=== PATIENT | female | born 1935 | race Caucasian/White ===

== ENCOUNTER 2019-02-20 09:12 | Inpatient (IN) ==
[2019-02-20] MEDS ORDERED: NS 1,000 ML IV ONE (10:06)
[2019-02-20] MEDS ORDERED: NS 100 ML IV ONE (10:07)
[2019-02-20 10:27] LABS: EOS# 0.05 X1000 (0.0-0.7); HEMATOCRIT 20.9 % (37.0-47.0); HEMOGLOBIN 7.1 g/dL (12.0-16.0); LYMPH# 0.15 X1000 (1.2-3.4); LYMPH% 21.1 % (20.5-51.1); MCH 33.5 PG (27-31); MCV 98.6 FL (81-99); MONO# 0.01 X1000 (0.11-0.59); MONO% 1.4 % (1.7-9.3); NEUT% 70.5 % (42.2-75.2); RBC 2.12 XMIL (4.2-5.4); RDW 21.5 % (11.5-14.5); WBC 0.71 X1000 (4.8-10.8)
[2019-02-20 10:29] LABS: PLT 9 X1000 (130-400)
[2019-02-20 10:37] LABS: AGAP 10; ALB/GLOB RATIO 1.5; ALBUMIN 3.1 g/dL (3.5-5.0); ALKALINE PHOSPHATASE 74 U/L (32-104); AMYLASE 60 U/L (20-200); BUN 14 mg/dL (8-22); CHLORIDE 96 mmol/L (98-107); COSMO 263; CREATININE 0.7 mg/dL (0.5-0.9); ESTIMATED GFR > 60; GLUCOSE 122 mg/dL (70-104); GOT 49 U/L (10-30); GPT 33 U/L (10-36); LIPASE 43 U/L (13-60); POTASSIUM 3.6 mmol/L (3.5-5.1); SODIUM 130 mmol/L (136-145); TCO2 24 mmol/L (25-35); TOTAL BILIRUBIN 2.11 mg/dL (0.20-1.00); TOTAL PROTEIN 5.2 g/dL (6.3-8.3)
[2019-02-20 10:51] LABS: EOS 12 % (1-10); LYMPHS 12 % (21-51); SEGS 72 % (42-75)
--- NOTE | 2019-02-20 10:58 | PROVIDER DOCUMENTATION ---
HPI-Fever - General Chief Complaint: Fever Stated Complaint: DEHYDRATED? ON CANCER TX Time Seen by Provider: 02/20/19 09:38 Source: patient, family Allergies/Adverse Reactions: Patient Allergies Allergy/AdvReac Type Severity Reaction Status Date / Time Sulfa (Sulfonamide Allergy RASH Verified 02/20/19 10:14 Antibiotics) Home Medications: Home Medication List Medication Instructions Recorded Confirmed Last Taken Type Acyclovir [Zovirax] 1 tab PO BID 02/20/19 02/20/19 Unknown History Dapsone 1 tab PO BID 02/20/19 02/20/19 Unknown History Dexamethasone 1 tab PO DAILY 02/20/19 02/20/19 Unknown History Hydrochlorothiazide 1 cap PO DAILY 02/20/19 02/20/19 Unknown History Levetiracetam 1 tab PO DAILY 02/20/19 02/20/19 Unknown History Levothyroxine [Synthroid] 1 tab PO DAILY 02/20/19 02/20/19 Unknown History Nitrofurantoin Monohyd/M-Cryst 1 cap PO BID 02/20/19 02/20/19 Unknown History [Nitrofurantoin [place]-Mcr 100 mg] Quinapril HCl 1 mg PO QHS 02/20/19 02/20/19 Unknown History - History of Present Illness-Fever Nature of Presenting Problem: Presents to the with complaints of low grade fever, possible UTI, SOB, cough and nausea. Her daughter states that she is cvurrently undergoing treatment for glioblastoma with chemo and radiation. Her daughter states that during the week she has been having a low grade temp to 100.8 and has been dosing tylenol. She states that earlier this week at one of her chemo treatments they diagnosed her with a UTI and gave her macrobid which she states she completed, however throughout the week she continued to get more weak, develop a non productive cough, become slightly SOB and have some nausea. They deny any diarrhea, or abdominal pain. They called their oncologist and spoke to the nurse pharmacy innovation assistant who told her to come in for IV fluids. Fever Severity/Quality: reports: greater than 100.5 F Onset/Duration: reports: 1 week ago Timing: reports: still present, getting worse Severity: reports: moderate Recent Illness?: reports: UTI Fever Therapy MANAGER LSW: Initiated Tylenol Cognitive Baseline: alert, oriented x3 - Glascow Coma Score Best Eye Response ([place]): (4) open spontaneously Best Verbal Response ([place]): (5) oriented Best Motor Response ([place]): (6) obeys commands Review of Systems - Adult - REVIEW OF SYSTEMS - ADULT Constitutional: reports: chills, fever, other (weakness) Eyes: reports: no symptoms reported Ears, Nose, Mouth & Throat: reports: no symptoms reported Cardiovascular: reports: no symptoms reported Respiratory: reports: see HPI, cough, shortness of breath Gastrointestinal: reports: nausea. denies: abdominal pain, diarrhea, vomiting Genitourinary: reports: frequent UTI's Musculoskeletal: reports: no symptoms reported Integumentary: reports: no symptoms reported Neurological: reports: no symptoms reported Psychiatric: reports: no symptoms reported Endocrine: reports: no symptoms reported Hematologic/Lymphatic: reports: no symptoms reported Allergic/Immunologic: reports: no symptoms reported All Other Systems: Reviewed and Negative Past History - Adult - PAST MEDICAL HISTORY-ADULT Review of Records: reports: Old Records Reviewed, Nursing Assessment Review, Medications Reviewed Physical Exam-General - PHYSICAL EXAM-ADULT Initial Vital Signs Reviewed: Yes - CONSTITUTIONAL General Appearance: alert, no apparent distress, other (weak) - EYES Eyes: PERRL/EOMI, pale conjunctivae - HEAD, EARS, NOSE, MOUTH & THROAT HENMT: normocephalic/atraumatic - NECK Neck: non-tender, full range of motion - RESPIRATORY Respiratory: chest non-tender, lungs clear, normal breath sounds - CARDIOVASCULAR Cardiovascular: normal peripheral pulses, regular rate, rhythm - GASTROINTESTINAL (ABDOMEN) Abdominal Exam: normal bowel sounds, soft, tenderness (mild diffuse tenderness) - LYMPHATIC Lymphatic: no adenopathy - MUSCULOSKELETAL Back Exam: normal inspection, no CVA tenderness Extremity: normal range of motion, non-tender - SKIN Integumentary: warm/dry, pallor - NEUROLOGIC Neurologic: grossly normal - PSYCHIATRIC Psych/Mental Status: normal mood/affect, oriented x 3 Progress - PLAN OF CARE/RESULTS Progress/Plan/Lab Results: Vital Signs - 8 hr 02/20/19 10:00 02/20/19 12:00 02/20/19 14:00 Pulse Rate 78 74 79 Respiratory Rate 22 28 H 29 H Blood Pressure 115/79 112/53 116/49 O2 Sat by Pulse Oximetry 87 L 91 L 90 L 02/20/19 16:00 Pulse Rate 88 Respiratory Rate 32 H Blood Pressure 109/49 O2 Sat by Pulse Oximetry 89 L Laboratory Results - last 24 hr 02/20/19 02/20/19 02/20/19 10:00 10:00 10:00 WBC 0.71 L RBC 2.12 L Hgb 7.1 L Hct 20.9 L MCV 98.6 MCH 33.5 H MCHC 34.0 RDW Std Deviation 21.5 H Plt Count 9 L* MPV Not Reportable Immature Gran % (Auto) 0.0 Neut % (Auto) 70.5 Lymph % (Auto) 21.1 [place] % (Auto) 1.4 L Eos % (Auto) 7.0 Baso % (Auto) 0.0 Immature Gran # (Auto) 0.00 Neut # (Auto) 0.50 L Lymph # (Auto) 0.15 L [place] # (Auto) 0.01 L Eos # (Auto) 0.05 Baso # (Auto) 0.00 Segmented Neutrophils 72 Lymphocytes 12 L Eosinophils 12 H Pathologist Review Unidentified Cells 4.0 Sodium 130 L Potassium 3.6 Chloride 96 L Carbon Dioxide 24 L Anion Gap 10 BUN 14 Creatinine 0.7 Estimated GFR/1.73 m2 > 60 BUN/Creatinine Ratio 20 Glucose 122 H Calculated Osmolality 263 Calcium 8.0 L Total Bilirubin 2.11 H AST 49 H ALT 33 Alkaline Phosphatase 74 Total Protein 5.2 L Albumin 3.1 L Globulin 2.1 Albumin/Globulin Ratio 1.5 Amylase 60 Lipase 43 Plasma Lactate 1.8 Urine Source Urine Color Urine Turbidity Urine pH Ur Specific [place] Urine Protein Ur Glucose (Stick) Ur Ketones (Stick) Urine Blood Urine Nitrite Urine Bilirubin Urobilinogen Dipstick Urine Leukocytes Urine WBC (Auto) Urine RBC (Auto) U Epithel Cells (Auto) Urine Bacteria (Auto) Blood Type Blood Type Confirm Antibody Screen Crossmatch 02/20/19 02/20/19 02/20/19 11:10 13:30 13:30 WBC RBC Hgb Hct MCV MCH MCHC RDW Std Deviation Plt Count MPV Immature Gran % (Auto) Neut % (Auto) Lymph % (Auto) [place] % (Auto) Eos % (Auto) Baso % (Auto) Immature Gran # (Auto) Neut # (Auto) Lymph # (Auto) [place] # (Auto) Eos # (Auto) Baso # (Auto) Segmented Neutrophils Lymphocytes Eosinophils Pathologist Review Unidentified Cells Sodium Potassium Chloride Carbon Dioxide Anion Gap BUN Creatinine Estimated GFR/1.73 m2 BUN/Creatinine Ratio Glucose Calculated Osmolality Calcium Total Bilirubin AST ALT Alkaline Phosphatase Total Protein Albumin Globulin Albumin/Globulin Ratio Amylase Lipase Plasma Lactate Urine Source CLEAN CATCH Urine Color YELLOW Urine Turbidity CLEAR Urine pH 6.0 Ur Specific [place] 1.008 Urine Protein 30 A Ur Glucose (Stick) NEGATIVE Ur Ketones (Stick) NEGATIVE Urine Blood NEGATIVE Urine Nitrite NEGATIVE Urine Bilirubin NEGATIVE Urobilinogen Dipstick 4 A Urine Leukocytes TRACE A Urine WBC (Auto) 10-20 A Urine RBC (Auto) <10 U Epithel Cells (Auto) <10 Urine Bacteria (Auto) NEGATIVE Blood Type A POSITIVE Blood Type Confirm A POSITIVE Antibody Screen NEGATIVE Crossmatch See Detail Orders Category Date Time Status [facility] Routine AdmDCTranf 02/20/19 15:15 Active Activity - Up with Assistance ORDERED Care 02/20/19 15:15 Active Contraindicatio-Pharmacologic ORDERED Care 02/20/19 15:15 Active Intake and Output-Strict ORDERED Care 02/20/19 15:15 Active Isolation Precautions Setup NOW Care 02/20/19 15:59 Active Nursing- MD Consult Request ROUTINE Care 02/20/19 15:19 Active Transfuse .Give-Transfuse Care 02/20/19 13:20 Active Z-Document. for Tele Applied ORDERED Care 02/20/19 15:17 Active Physician/Provider Consults Routine Cons 02/20/19 15:15 Ordered Neutropenic Diet Diet 02/20/19 15:[address] THORAX/ABD/PELVIS W/CON [CT] Stat Exams 02/20/19 10:05 Completed AMYLASE [CHEM] Stat Lab 02/20/19 10:00 Completed BLOOD CULTURE [BLDCUL] Stat Lab 02/20/19 10:00 Results C DIFF TOXIN [STOOL] Stat Lab 02/20/19 14:15 Uncollected CBC WITH DIFF [HEME] Routine Lab 02/21/19 06:00 Ordered CBC WITH ELECTRONIC DIFF [HEME] Stat Lab 02/20/19 10:00 Completed COMPREHENSIVE METABOLIC PANEL [CHEM] Routine Lab 02/21/19 06:00 Ordered COMPREHENSIVE METABOLIC PANEL [CHEM] Stat Lab 02/20/19 10:00 Completed IRRADIATED PHERESIS PLATELETS [BBK] Stat Lab 02/20/19 13:30 Results LACTATE, PLASMA [CHEM] Stat Lab 02/20/19 10:00 Completed LIPASE [CHEM] Stat Lab 02/20/19 10:00 Completed LRPC (RED CELLS) [BBK] Stat Lab 02/20/19 13:30 Results PHERESIS PLATELETS [BBK] Stat Lab 02/20/19 13:30 Results TYPE & SCREEN [BBK] Stat Lab 02/20/19 13:30 Results URINALYSIS W/POSS RFLX CULT [URINALYSIS] Stat Lab 02/20/19 11:10 Completed URINE CULTURE [RM] Routine Lab 02/20/19 11:10 Received 0.9% Sodium Chloride Inj [Ns] 1,000 ml Med 02/20/19 11:36 Discontinued .ROUTE As directed 0.9% Sodium Chloride Inj [Ns] 1,000 ml Med 02/20/19 10:06 Discontinued IV 999 mls/hr 0.9% Sodium Chloride Inj [Ns] 100 ml Med 02/20/19 10:07 Discontinued IV DIRECTED Acyclovir [Zovirax] Med 02/20/19 21:00 Active 400 mg PO BID CefEPIME [Maxipime] 2 gm Med 02/20/19 12:53 Discontinued 0.9% Sodium Chloride Inj [Ns] 100 ml IV NOW CefEPIME [Maxipime] 2 gm Med 02/20/19 15:30 Discontinued 0.9% Sodium Chloride Inj [Ns] 100 ml IV Q12H Ciprofloxacin 400 mg/D5w [Cipro 400 mg/D5w] Med 02/20/19 12:31 Discontinued 400 mg in 200 ml IV NOW Dexamethasone [Decadron] Med 02/21/19 09:00 Active 4 mg PO DAILY Filgrastim [Neupogen] Med 02/20/19 13:20 Discontinued 480 microgm SUBQ NOW ONE Levetiracetam [Keppra] Med 02/21/19 09:00 Active 500 mg PO DAILY Levothyroxine [Synthroid] Med 02/21/19 09:00 Active 50 microgm PO DAILY Metronidazole 500 mg/Ns [Flagyl 500 mg/Ns] Med 02/20/19 12:31 Discontinued 500 mg in 100 ml IV NOW Metronidazole 500 mg/Ns [Flagyl 500 mg/Ns] Med 02/20/19 12:53 Discontinued 500 mg in 100 ml IV NOW Metronidazole 500 mg/Ns [Flagyl 500 mg/Ns] Med 02/20/19 15:30 Active 500 mg in 100 ml IV Q6H Omeprazole [Prilosec] Med 02/21/19 09:00 Active 40 mg PO DAILY Ondansetron [Zofran] Med 02/20/19 11:52 Discontinued 4 mg .ROUTE .STK-MED ONE Ondansetron [Zofran] Med 02/20/19 11:53 Discontinued 4 mg IV NOW ONE Ondansetron [Zofran] Med 02/20/19 15:15 Active 4 mg IV Q4H PRN PRN Quinapril [Accupril] Med 02/20/19 21:00 Active 40 mg PO QHS Vancomycin 1 gm/Ns Med 02/20/19 12:53 Discontinued 1 gm in 250 ml IV NOW Telemetry [OM.EQ] Routine Oth 02/20/19 15:15 Active Transfer/Admit Order [TRANSFER] Routine Transfer 02/20/19 15:21 Completed Patient with recent labs on 02/08 showing WBC 4.5, Hgb 11.6 and Platelets 225. Today she is WBC 0.7, Hgb 7.[address] is showing colitis but nothing acute in the chest. She also does have a UTI. Started her on broad spectrum given neutropenic fever and immunocomp. Given Vanc, Cefepime and Flagyl. Spoke to AMINA Beyer pharmacy innovation assistant with hospitalist who accepted patient. Spoke with Dr Santiago pharmacy innovation assistant for oncology who recommended transfusion and Neupogen 480 mg SC daily. Orders placed. Additional orders to be placed by hospitalist team. Result Diagrams: 02/20/19 10:00 02/20/19 10:00 - CT/MRI 1 Impression: See EMR Report (EXAM: CT THORAX/ABD/PELVIS W/CON - 02/20/2019 HISTORY: fever, cancer pt TECHNIQUE: CT thorax and abdomen/pelvis with oral and intravenous contrast. COMPARISON: None. FINDINGS: CT thorax: There are small bilateral pleural effusions. There is a small amount of fluid around the ascending aorta which may be located in the superiormost pericardium. There is no indication of aortic dissection. There is some dependent and bibasilar subsegmental atelectasis. There is no dense consolidation or pneumothorax i dentified. There is no discrete pulmonary mass lesion identified. There are multiple small mediastinal lymph nodes. There is a moderate size hiatal hernia. CT abdomen/pelvis: There are no substantial abnormalities of the liver, spleen, adrenal glands, or pancreas identified. There are no calcified gallstones or pericholecystic inflammation identified. The bilateral kidneys enhance homogeneously. There is no hydronephrosis. There are no substantially enlarged lymph nodes identified. There are atherosclerotic calcifications noted. There are lumbar spine degenerative changes noted. There is no evidence of bowel obstruction. There is possibly mild wall thickening along the left colon, which may relate to mild colitis. There is no free air or abscess identified. There is a small amount of free fluid in the pelvis. IMPRESSION: CT thorax: Small bilateral pleural effusions. Small amount of fluid around the ascending aorta, which may be located in the superiormost pericardium. No indica tion of aortic dissection. Dependent and basilar subsegmental atelectasis. No discrete pneumonia. Hiatal hernia. CT abdomen/pelvis: Possible mild left colitis. No abscess. No free air. This exam was performed using automated exposure control, adjustment of mA or kV according to patient size, and/or use of iterative reconstruction technique. Electronically signed by Kaiser Carbajal 02/20/2019 12:00 PM) - CONSULTS/PCP/HOSPITALIST Notification #1 *Consult/PCP/Hospitalist*: Hospitalist Time Discussed: 12:40 Consult Disposition: Admit #2 Consult: Dr Santiago Time Discussed: 12:45 Consult Disposition: Admit (Will see pt in consult, recommended Neupogen and agrees with antibiotics. Wanted transfusion of 2U PRBCs and jumbo platelet) Departure - Departure Date of Disposition Decision: 02/20/19 Time of Disposition Decision: 12:40 DIAGNOSIS: Neutropenic sepsis, Pancytopenia due to chemotherapy, Colitis, UTI (urinary tract infection) Disposition: ADMITTED INPATIENT 09 Certified Medical Emergency: Emergent Condition: Critical - Critical Care Note This patient required my direct & personal management of CC.: Yes Total Time (mins): 90 Critical Care Statement: This patient required my direct personal management to treat or rule out processes, the absence of which, could potentiallly result in sudden, clinically significant life or limb threatening deterioration. Attestation - Physician/ TAQUERIA Attestation Patient care was provided by Advanced Practice Provider:: No The physician spent face to face time with patient:: Yes Advanced Practice Provider documentation review:: Supervising physician onsite and consulted in the evaluation and care of this patient. The physician did have a face to face encounter with the patient.
[2019-02-20 11:15] LABS: URINE SOURCE CLEAN CATCH
[2019-02-20 11:22] LABS: BILIRUBIN URINE NEGATIVE (NEGATIVE); BLOOD URINE NEGATIVE (NEGATIVE); COLOR YELLOW; GLUCOSE URINE NEGATIVE (NEGATIVE); KETONE URINE NEGATIVE (NEGATIVE); LEUKOCYTES URINE TRACE (NEGATIVE); NITRITE URINE NEGATIVE (NEGATIVE); PROTEIN URINE 30 mg/dL (NEGATIVE); SP GRAVITY URINE 1.008; TURBIDITY URINE CLEAR (CLEAR); UR EPITHELIAL CELLS <10 /HPF (<10); URINE BACTERIA NEGATIVE /HPF; URINE RBC <10 /HPF (<10); UROBILINOGEN URINE 4 mg/dL (NORMAL)
[2019-02-20] MEDS ORDERED: NS 1,000 ML ONE ×2 (11:36→17:32)
[2019-02-20] MEDS ORDERED: ZOFRAN ONE (11:52)
[2019-02-20] MEDS ORDERED: ZOFRAN IV ONE (11:53)
--- NOTE | 2019-02-20 12:02 | Diag Imaging Result Doc PS360 ---
EXAM: CT THORAX/ABD/PELVIS W/CON - 02/20/2019 HISTORY: fever, cancer pt TECHNIQUE: CT thorax and abdomen/pelvis with oral and intravenous contrast. COMPARISON: None. FINDINGS: CT thorax: There are small bilateral pleural effusions. There is a small amount of fluid around the ascending aorta which may be located in the superiormost pericardium. There is no indication of aortic dissection. There is some dependent and bibasilar subsegmental atelectasis. There is no dense consolidation or pneumothorax identified. There is no discrete pulmonary mass lesion identified. There are multiple small mediastinal lymph nodes. There is a moderate size hiatal hernia. CT abdomen/pelvis: There are no substantial abnormalities of the liver, spleen, adrenal glands, or pancreas identified. There are no calcified gallstones or pericholecystic inflammation identified. The bilateral kidneys enhance homogeneously. There is no hydronephrosis. There are no substantially enlarged lymph nodes identified. There are atherosclerotic calcifications noted. There are lumbar spine degenerative changes noted. There is no evidence of bowel obstruction. There is possibly mild wall thickening along the left colon, which may relate to mild colitis. There is no free air or abscess identified. There is a small amount of free fluid in the pelvis. IMPRESSION: CT thorax: Small bilateral pleural effusions. Small amount of fluid around the ascending aorta, which may be located in the superiormost pericardium. No indication of aortic dissection. Dependent and basilar subsegmental atelectasis. No discrete pneumonia. Hiatal hernia. CT abdomen/pelvis: Possible mild left colitis. No abscess. No free air. This exam was performed using automated exposure control, adjustment of mA or kV according to patient size, and/or use of iterative reconstruction technique. Electronically signed by Kaiser Carbajal 02/20/2019 12:00 PM
[2019-02-20] MEDS ORDERED: CIPRO 400 MG/D5W 400 MG/200 ML IVPB IV ONE (12:31)
[2019-02-20] MEDS ORDERED: FLAGYL 500 MG/NS 500 MG/100 ML IVPB IV ONE ×2 (12:31→12:53)
[2019-02-20] MEDS ORDERED: MAXIPIME 2 GM in NS 100 ML IV ONE (12:53)
[2019-02-20] MEDS ORDERED: VANCOMYCIN 1 GM/NS 1 GM/250 ML IVPB IV ONE (12:53)
[2019-02-20] MEDS ORDERED: NEUPOGEN SUBQ ONE (13:20)
[2019-02-20] MEDS ORDERED: MAXIPIME 2 GM in NS 100 ML IV SCH (15:30)
[2019-02-20] MEDS: DUONEB (A & A) INH SCH ×2 (19:30→23:30)
[2019-02-20] MEDS ORDERED: LASIX IV ONE (20:00)
--- NOTE | 2019-02-20 20:13 | HISTORY AND PHYSICAL ---
CHIEF COMPLAINT: Is fever, dehydration, general weakness. HISTORY OF PRESENT ILLNESS: This is an 83-year-old female with a history of glioblastoma who is status post surgery 10/31/2018 and 12/21/2018 and is currently undergoing chemotherapy and radiation with Dr. Chiara Rodríguez and Raina Zimmerman. She has just completed week 4 of 6 of her radiation. She comes in complaining of cough, shortness of breath, a low-grade fever and generalized weakness for the last week. She was diagnosed with a urinary tract infection and placed on Macrobid with no improvement of symptoms. She was found to have a white blood cell count of 0.71 with a hemoglobin of 7.1, hematocrit 20.9 and platelets of 9000. PAST MEDICAL HISTORY: 1. Glioblastoma status post surgery in October 2018 and December 2018 currently undergoing radiation and chemotherapy. 2. Gastroesophageal reflux disease. 3. Hypertension. 4. Hypothyroidism. PAST SURGICAL HISTORY: Cataract removal, hysterectomy, glioblastoma removal and breast reduction. SOCIAL HISTORY: She denies alcohol, tobacco, or illicit drug use. ALLERGIES: Sulfa that causes a rash. HOME MEDICATIONS: A list will be obtained by the nursing staff and once verified, will review and restart as appropriate. REVIEW OF SYSTEMS: Discussed with the patient with pertinent positives stated in HPI. She denied any syncope, any dizziness, any chest pain, palpitations, any vomiting, diarrhea, constipation, any black or bloody vomitus or stools or any hematuria. PHYSICAL EXAMINATION: GENERAL: This is a very pleasant 83-year-old female who is lying flat on the stretcher in the emergency room in no distress. VITAL SIGNS: Blood pressure is 115/79 with a heart rate of 78, respirations are 20, temperature is 97.8 degrees oral with room air saturations of 87%. HEENT: Pupils are equal, round, react to light. EOMs are intact. Sclerae anicteric. Head is normocephalic, atraumatic. Mucous membranes are dry. NECK: Supple. Trachea midline. CARDIOVASCULAR: Regular rate and rhythm. S1 and S2 appreciated. She does have scant pretibial edema. Calves are nontender to palpation with peripheral pulses palpable x4 extremities. PULMONARY: Breath sounds are clear with no increased work of breathing noted. Chest rises and falls symmetric respiration. Chest wall is nontender to palpation. GASTROINTESTINAL: Abdomen is soft with some generalized tenderness, nondistended with bowel sounds in all 4 quadrants. NEUROLOGIC: She is alert and oriented x3. SKIN: Pale, warm and dry. LABS: WBC is 0.71 with a hemoglobin of 7.1, hematocrit 20.9, platelets of 9000, neutrophils are 0.50. Sodium is 130, potassium 3.6, BUN 14, creatinine 0.7, glucose 122, total bilirubin is 2.1 with an AST of 49. Her amylase is 60, lipase is 43. Urinalysis reveals trace leukocytes, 10 to 20 white blood cells, negative for bacteria. Microbiology. Blood cultures, urine culture pending. CT of the chest, abdomen and pelvis reveals no substantial abnormalities of liver, spleen, adrenal glands or pancreas. There are no calcified gallstones or pericholecystic inflammation identified. The bilateral kidneys enhance homogeneously. There is no hydronephrosis. There were no substantially enlarged lymph nodes identified. There is no evidence of bowel obstruction. There is possibly mild wall thickening along the left colon which may relate to colitis. No free air of abscess. There is a small amount of free fluid in the pelvis. CT of the thorax revealed small bilateral pleural effusions, small amount of fluid around the ascending aorta which may be located in the superior-most pericardium. No indication of aortic dissection, dependent basilar subsegmental atelectasis with no discrete pneumonia and hiatal hernia . ASSESSMENT AND PLAN: 1. Neutropenic fever. In reviewing of the patient's past microbiology on February 17 urine culture revealed Aerococcus urine. Will start cefepime and further antibiotics will be culture driven. 2. Urinary tract infection secondary to Aerogenes. Will start antibiotic therapy. Will also consult ID. 3. Pancytopenia. Dr. Yang has been notified of the patient's labs. She will be transfused 2 units of packed red blood cells and 1 unit of platelets. Will start neutropenic precautions. 4. Possible left colitis. She was given Flagyl in the emergency room which we will continue. 5. Gastroesophageal reflux disease. PPI. 6. Hypertension. Will continue her home medications as appropriate. 7. Hypothyroidism. Will obtain a TSH and continue her home medicines. 8. Hyponatremia. Will start IVF and follow the sodium closely. Dictated by ERIKA Salcedo for Glenis Hill MD This chart was documented by, ERIKA Salcedo and accurately reflects the services performed, treatment plan and medical decisions as attested by the providers signature Glenis Hill MD. cc: ERIKA Salcedo MD I performed a face to face encounter on the patient. I reviewed all labs and imaging on the patient. I agree with the H&P as dictated. The patient presented to the ER with a chief complaint of fever and generalized weakness. Upon arrival to the ER, the patient was noted to be pancytopenic with a WBC count of 0.7, hemoglobin of 7.1, and platelet count of 9000. On exam, the patient is alert and oriented x 3. Her breath sounds are equal bilaterally. No wheezing or rales noted. No edema is noted on her lower extremities. Blood and urine cultures have been obtained. Will start the patient on broad spectrum antibiotic therapy pending culture results. Will also consult with ID for further assistance with management. LOY
[2019-02-20] MEDS: ACCUPRIL PO SCH (21:00)
[2019-02-20] MEDS: FLAGYL 500 MG/NS 500 MG/100 ML IVPB IV SCH (21:15)
[2019-02-20] MEDS: KEPPRA PO SCH (22:40)
[2019-02-20] MEDS: ZOVIRAX PO SCH (22:45)
[2019-02-21] MEDS: FLAGYL 500 MG/NS 500 MG/100 ML IVPB IV SCH ×3 (01:00→12:00)
[2019-02-21] MEDS ORDERED: MAXIPIME 2 GM in NS 100 ML IV SCH (02:00)
[2019-02-21] MEDS: DUONEB (A & A) INH SCH ×6 (03:30→23:36)
--- NOTE | 2019-02-21 07:26 | Diag Imaging Result Doc PS360 ---
EXAM: CHEST-PORTABLE HISTORY: dyspnea TECHNIQUE: Portable chest single view COMPARISON: None. FINDINGS: Satisfactory inspiratory effort. Heart is mildly prominent and there is mild central vascular distention. Questionable small infiltrate in the right base. No consolidation. No pleural effusions identified. IMPRESSION: Mildly prominent heart with mild pulmonary edema Electronically signed by Cr Cerda 02/21/2019 7:24 AM
[2019-02-21] MEDS: SYNTHROID PO SCH ×2 (07:30→11:58)
[2019-02-21 07:44] LABS: ALLEN TEST YES; BE 0.7 mmoll (-3.0-3.0); BLOOD TYPE ARTERIAL; HCO3-(ACT) 25.2 mmoll (20.0-26.0); O2(CT) 10.2 mL/dL (15.0-23.0); PCO2(98.6) 26 mmHg (35-45); PO2(98.6) 366 mmHg (60-100); SAMPLE BLOOD; THB 8.3 g/dL (11.5-17.4); pH(98.6) 7.55 (7.35-7.45)
[2019-02-21 07:45] LABS: MODALITY NRB
[2019-02-21 07:46] LABS: METHB 19.7 % (0.0-1.5); O2HB 78.1 % (95.0-99.0)
[2019-02-21] MEDS ORDERED: VANCOMYCIN IV PER PHARMACY MISC SCH (08:00)
[2019-02-21] MEDS ORDERED: KEPPRA PO SCH (09:00)
[2019-02-21] MEDS ORDERED: VANCOMYCIN 2,000 MG in NS 500 ML IV ONE (09:00)
[2019-02-21] MEDS ORDERED: DECADRON PO SCH (09:00)
[2019-02-21 09:28] LABS: EOS# 0.03 X1000 (0.0-0.7); EOS% 2.7 % (0.0-10.0); HEMOGLOBIN 8.7 g/dL (12.0-16.0); IMM GRAN# 0.03 X1000 (0.0-0.04); IMM GRAN% 2.7 % (0.0-0.5); LYMPH# 0.19 X1000 (1.2-3.4); LYMPH% 17.3 % (20.5-51.1); MCH 32.7 PG (27-31); MCHC 34.8 g/dL (33-37); MONO# 0.01 X1000 (0.11-0.59); MONO% 0.9 % (1.7-9.3); MPV 11.2 FL (7.4-10.4); NEUT# 0.84 X1000 (1.4-6.5); NEUT% 76.4 % (42.2-75.2); PLT 53 X1000 (130-400); RBC 2.66 XMIL (4.2-5.4); RDW 20.6 % (11.5-14.5)
[2019-02-21 09:46] LABS: AGAP 9; ALB/GLOB RATIO 1.4; ALKALINE PHOSPHATASE 91 U/L (32-104); BUN 10 mg/dL (8-22); CALCIUM 7.7 mg/dL (8.8-10.2); CHLORIDE 103 mmol/L (98-107); COSMO 273; CREATININE 0.7 mg/dL (0.5-0.9); ESTIMATED GFR > 60; GLUCOSE 134 mg/dL (70-104); GOT 52 U/L (10-30); GPT 38 U/L (10-36); POTASSIUM 2.9 mmol/L (3.5-5.1); SODIUM 136 mmol/L (136-145); TCO2 24 mmol/L (25-35); TOTAL BILIRUBIN 2.17 mg/dL (0.20-1.00); TOTAL PROTEIN 5.2 g/dL (6.3-8.3)
[2019-02-21] MEDS ORDERED: POTASSIUM CHLORIDE 60 MEQ in NS 500 ML IV ONE (10:03)
[2019-02-21 10:42] LABS: ALLEN TEST NO; BE -1.4 mmoll (-3.0-3.0); BLOOD TYPE ARTERIAL; HCO3-(ACT) 23.6 mmoll (20.0-26.0); PCO2(98.6) 24 mmHg (35-45); PO2(98.6) 203 mmHg (60-100); SAMPLE BLOOD; THB 8.2 g/dL (11.5-17.4); pH(98.6) 7.54 (7.35-7.45)
[2019-02-21 10:52] LABS: MODALITY NRB; O2HB 82.3 % (95.0-99.0)
[2019-02-21] MEDS: ZOVIRAX PO SCH ×2 (11:58→22:40)
[2019-02-21] MEDS: PRILOSEC PO SCH (11:58)
[2019-02-21 14:01] LABS: ALLEN TEST NO; BLOOD TYPE ARTERIAL; HCO3-(ACT) 25.4 mmoll (20.0-26.0); O2(CT) 9.6 mL/dL (15.0-23.0); PCO2(98.6) 28 mmHg (35-45); PO2(98.6) 266 mmHg (60-100); SAMPLE BLOOD; SAO2 98.1 % (95.0-100.0); pH(98.6) 7.53 (7.35-7.45)
[2019-02-21 14:05] LABS: METHB 19.5 % (0.0-1.5); MODALITY NRB; O2HB 78.6 % (95.0-99.0)
[2019-02-21] MEDS ORDERED: METHYLENE BLUE 1% IV ONE (14:25)
[2019-02-21] MEDS ORDERED: MISC. PHARMACY COMMUNICATION SCH (15:15)
--- NOTE | 2019-02-21 15:40 | ECHO REPORT ---
ORDER DATE: 02/21/2019 ECHOCARDIOGRAM: ECHOCARDIOGRAPHIC MEASUREMENTS: 1. Interventricular septum 1.1. 2. Left ventricular posterior wall 1.0. 3. Diastolic diameter 4.6. 4. Left atrium 3.3. 5. Aorta 3.3. SUMMARY: Aortic valve leaflets were sclerosed, trileaflet, opening normally. Pulmonic valve was normal. Tricuspid valve was normal. Mitral valve was normal. There is trace pulmonary regurgitation. Normal left ventricular cavity size. Estimated ejection fraction of 60-65%. There is mild mitral regurgitation. Peak velocity across the tricuspid valve was 2.9 m/sec. Pulmonary artery systolic pressure of 44 mmHg. There is mild tricuspid regurgitation. There is trace pulmonary regurgitation. By Doppler studies there is no aortic stenosis or regurgitation. There is no obvious pericardial effusion or intracardiac mass or thrombus seen. cc: MD Glenis Ramírez MD
[2019-02-21] MEDS: NS IV SCH ×2 (16:18→22:40)
[2019-02-21] MEDS: VITAMIN C IV SCH ×2 (16:18→22:40)
[2019-02-21] MEDS ORDERED: TAGAMET PO ONE ×2 (17:02→22:15)
--- NOTE | 2019-02-21 17:31 | PROGRESS NOTE ---
DATE: 02/21/2019 SUBJECTIVE: The patient is resting in bed. She states that she is cold. She does complain of mild shortness of breath. She is currently on a 100% non-rebreather. OBJECTIVE: Vital Signs: Temperature 98.1 degrees, blood pressure 116/50, heart rate 87, respirations 18, O2 saturation 91% on 100% non-rebreather. General: This is a chronically ill- appearing, elderly female lying in bed, in no acute distress. Heart: S1, S2 normal. Regular rate and rhythm. Lungs: Equal air entry bilaterally. No wheezing. No rales. No rhonchi. Abdomen: Positive bowel sounds. Soft, nontender, nondistended. Extremities: No edema. No cyanosis. No calf tenderness. Neurologic: The patient is alert and oriented x3. LABS: White blood cell count 1.1, hemoglobin 8.7, hematocrit 25, platelets 53,000. ABG, pH of 7.55, pCO2 26, PO2 366. Methemoglobin 19. Lactate 1.2. Chest x-ray shows mild pulmonary edema and a small infiltrate at the right lung base. ASSESSMENT AND PLAN: 1. Acute hypoxemic respiratory failure. The patient has mild pulmonary edema with a possible right base infiltrate. We will continue with antibiotic therapy and bronchodilator therapy. 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 2. Methemoglobinemia. Will consult with Pulmonary for further recommendations. 3. Seizure disorder. Continue on Keppra. 4. Urinary tract infection secondary to Aerococcus. We will consult ID for the appropriate antibiotic choice. 5. Pancytopenia. Slightly improved. We will continue with neutropenic precautions and transfuse blood products as needed. Oncology has been consulted. 6. Glioblastoma status post chemoradiation. Management as per the Oncologist. cc: Glenis Hill MD [facility]
[2019-02-21] MEDS ORDERED: PEPCID PO ONE (17:45)
--- NOTE | 2019-02-21 19:20 | INFECTIOUS DISEASE CONSULT REP ---
DATE: 02/21/2019 CONCLUSION: The patient was admitted the hospital with neutropenic fever. She had an Aerococcus urinary tract infection and she may have colitis as seen on CT scan. RECOMMENDATION: I have discontinued vancomycin, cefepime and Flagyl and instead have put the patient on Zosyn. DISCUSSION: The patient has been getting chemotherapy and radiation therapy for a glioblastoma for the past 4 weeks. She has become weak and she had fever. Urine culture grew Aerococcus and on CT scan the patient was seen to possibly have colitis, but no pneumonia. Laboratory studies show a CBC with a white count of 1100, hemoglobin 8.7 and platelet count 53,000. Absolute neutrophil count was 840. The urine grew Aerococcus and with 40,000 to 50,000 colony-forming units on February 17 and on February 20 the urine culture was negative. CT scan of the thorax, abdomen and pelvis showed colitis but no pneumonia. Chest x-ray showed pulmonary edema. Creatinine was 0.7. GFR is greater than 60. Bilirubin was 2.17. ENDOCRINOLOGY NURSE HISTORY: She is a 3, para 2., AB 1. She has had a hysterectomy. REVIEW OF SYSTEMS: Eyes and ears: The patient says she can see okay but she has decreased hearing. Neck: No pain with movement of the neck. Pulmonary: No cough or shortness of breath. GI: No nausea, vomiting, or diarrhea. : The patient a few days ago did have dysuria. Integument: No rash. Neurologic: The patient has decreased hearing. She does not have seizures. She has not had any recent loss of motor or sensory function. Endocrine: The patient does not have diabetes but she does have hypothyroidism . PREVIOUS HOSPITALIZATIONS AND OPERATIONS: She has had 2 labor and deliveries, 1 miscarriage, a hysterectomy, brain surgery for her glioblastoma, eye surgeries, lymph node surgeries, bilateral breast reduction and 2 surgeries for bladder slings. MEDICAL DISEASES: Positive for glioblastoma an hypertension, hypothyroidism. Hyperlipidemia . INFECTIOUS DISEASE HISTORY: Negative for pneumonia and UTI. FAMILY HISTORY: Positive for diabetes mellitus, hypertension, myocardial infarction, and cancer. SOCIAL HISTORY: [place] She is a and she lives alone. ALLERGIES: She has an allergy to sulfa. HOME MEDICATIONS: Include acyclovir, dapsone, dexamethasone, hydrochlorothiazide, levetiracetam, Synthroid, nitrofurantoin, Pravachol, quinapril and Co-Q10. PHYSICAL EXAMINATION: Vital Signs: Temperature is 98.1 degrees, pulse 84, respirations 28, blood pressure 116/50, patient weighs 195 pounds. General: This is an obese elderly female. She is in no acute distress. Head, eyes, ears, nose, and throat: She has decreased hearing, she can see out of her right eye. She does have a left ptosis. Neck: No stiffness. Lungs: Clear to auscultation. Cardiovascular: Regular heart rate. Abdomen: Soft and nontender. Extremities: No edema or erythema. Neurologic: The patient is awake, she can move her extremities. There is no tremor. Her sensation is intact to touch. Her memory as regarding her medical history appears intact. Integument: No rash noted. Thank you for the consult. cc: Ksehawn Xiong MD
--- NOTE | 2019-02-21 19:38 | PULMONOLOGY CONSULTATION ---
DATE: 02/21/2019 REQUESTING PHYSICIAN: Dr. Hill. REASON FOR CONSULTATION: Acute respiratory failure. HISTORY OF PRESENT ILLNESS: Ms. Arango is an 83-year-old white female status post surgery x 2 for glioblastoma who is currently undergoing chemotherapy and radiation. She is currently on dexamethasone along with prophylactic dapsone and acyclovir for immunosuppression. She recently developed a urinary tract infection and was initiated on nitrofurantoin. The patient is having low-grade fevers at home, along with increased shortness of breath. The patient's hemoglobin on admission was 7.1, her white blood count was 0.71, and her platelet count was 9000. She has mild hyperbilirubinemia. PAST MEDICAL HISTORY - PROBLEM LIST: 1. Glioblastoma, undergoing treatment as per above. 2. Gastroesophageal reflux disease. 3. Hypertension. 4. Hypothyroidism. 5. Recent diagnosis of urinary tract infection. 6. Status post cataract removal. 7. Status post hysterectomy. SOCIAL HISTORY: The patient is a nondrinker and a nonsmoker. FAMILY HISTORY: Noncontributory to current presentation. PHYSICAL EXAMINATION: General: Reveals a well-developed, well-nourished white female who is resting comfortably on a non-rebreather mask. Vital Signs: Oxygen saturation is trending at 91. Heart rate 84, blood pressure 116/50. She has been afebrile with a maximum temperature during this hospitalization of 99.4. HEENT: Pupils are equal and reactive. Oropharynx is clear. Neck: Supple. Chest: Reveals good air entry bilaterally without wheezing or rhonchi. Cardiac: S1, S2. Abdomen: Soft. Extremities: Without edema. The patient has nail [place] on her fingernails. She may have very slight cyanosis of the lower extremity nail beds, but it is not prominent. LABORATORIES: Arterial blood gas at 7:30 this morning revealed a pH 7.55, pCO2 of 26, PO2 of 366, with a meth hemoglobin level of 19.7. This was repeated at 10:40 and the meth hemoglobin had dropped to 16, but when repeated at 2:00 it was still measuring 19.5. Chest x-ray reveals mildly prominent heart with mild edema. CT scan of the chest, abdomen and pelvis reveals small effusions with small amount of fluid surrounding the ascending aorta. Chemistry: Sodium 136, potassium 2.9, chloride 103, bicarbonate 24, BUN 10, creatinine 0.7. IMPRESSION: An 83-year-old being treated for glioblastoma who is recently on a combination of dapsone and nitrofurantoin. The patient has: 1. Acute hypoxemic respiratory failure. 2. Methemoglobinemia. 3. Anemia. 4. Neutropenia. 5. Thrombocytopenia. 6. Mild hyperbilirubinemia. 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 The patient's methemoglobin likely was triggered by a combination of dapsone and nitrofurantoin, which can have and additive effect. The typical recommendations for treatment is when methemoglobin is greater than 20 and she is right on the edge for treatment. I will give her cimetidine which is an antidote for dapsone- inducing methemoglobinemia. I will also give her vitamin C. However, if she has increase in methemoglobin or she develops symptoms, I will give her methylene blue. There is some risk of using methylene blue in patients with G6PD deficiency, but I think her history is most consistent with methemoglobinemia due to the combination of drugs listed above. I will send a G6PD for screening, although I think that this is not likely. RECOMMENDATIONS: 1. Continue non-rebreather mask. 2. Initiate cimetidine as per above. 3. Initiate vitamin C. 4. I listed dapsone on her allergy. It might be used with caution, as long as she does not combine it with nitrofurantoin. I will leave this to the discretion of her physicians. cc: Thom El MD [facility]
[2019-02-21 20:14] LABS: ALLEN TEST YES; BE -0.2 mmoll (-3.0-3.0); BLOOD TYPE ARTERIAL; HCO3-(ACT) 24.6 mmoll (20.0-26.0); O2(CT) 10.7 mL/dL (15.0-23.0); PCO2(98.6) 29 mmHg (35-45); PO2(98.6) 202 mmHg (60-100); SAMPLE BLOOD; SAO2 98.2 % (95.0-100.0); THB 8.5 g/dL (11.5-17.4)
[2019-02-21] MEDS: ZOSYN 3.375 GM in NS 50 ML IV SCH ×2 (20:17→22:50)
[2019-02-21 20:21] LABS: MODALITY NRB
[2019-02-21] MEDS ORDERED: PEPCID PO SCH (21:00)
[2019-02-21] MEDS ORDERED: TAGAMET PO SCH (22:30)
[2019-02-21] MEDS: KEPPRA PO SCH (22:40)
[2019-02-21] MEDS: NON-FORMULARY MED PO SCH (22:40)
[2019-02-21] MEDS: ACCUPRIL PO SCH (22:42)
[2019-02-22] MEDS: ZOSYN 3.375 GM in NS 50 ML IV SCH ×3 (02:29→21:40)
[2019-02-22] MEDS: NS IV SCH ×3 (03:49→20:29)
[2019-02-22] MEDS: VITAMIN C IV SCH ×3 (03:49→20:29)
[2019-02-22] MEDS: DUONEB (A & A) INH SCH ×6 (03:55→23:50)
[2019-02-22 05:42] LABS: ALLEN TEST YES; BE 1.1 mmoll (-3.0-3.0); BLOOD TYPE ARTERIAL; HCO3-(ACT) 25.8 mmoll (20.0-26.0); PCO2(98.6) 37 mmHg (35-45); PO2(98.6) 106 mmHg (60-100); SAMPLE BLOOD; pH(98.6) 7.44 (7.35-7.45)
[2019-02-22 05:44] LABS: MODALITY NRB
--- NOTE | 2019-02-22 07:14 | Diag Imaging Result Doc PS360 ---
EXAM: CHEST-PORTABLE HISTORY: dyspnea TECHNIQUE: Portable chest single view COMPARISON: 02/21/2019 FINDINGS: Poor inspiratory effort. There is pulmonary edema. Atelectasis is present lower left lung with small effusion. No cardiomegaly. The findings in the left base are slightly more pronounced than on the prior study. IMPRESSION: Mild interval worsening. Electronically signed by Cr Cerda 02/22/2019 7:12 AM
[2019-02-22 07:24] LABS: AGAP 8; ALB/GLOB RATIO 1.3; ALBUMIN 2.8 g/dL (3.5-5.0); ALKALINE PHOSPHATASE 84 U/L (32-104); BUN 8 mg/dL (8-22); CALCIUM 8.2 mg/dL (8.8-10.2); CHLORIDE 109 mmol/L (98-107); COSMO 281; CREATININE 0.6 mg/dL (0.5-0.9); ESTIMATED GFR > 60; GLUCOSE 158 mg/dL (70-104); GOT 35 U/L (10-30); GPT 34 U/L (10-36); PHOSPHORUS 1.7 mg/dL (2.7-4.5); POTASSIUM 3.3 mmol/L (3.5-5.1); SODIUM 140 mmol/L (136-145); TCO2 23 mmol/L (25-35); TOTAL PROTEIN 4.9 g/dL (6.3-8.3)
[2019-02-22 07:35] LABS: BASO# 0.01 X1000 (0.0-0.2); BASO% 1.1 % (0.0-0.8); HEMATOCRIT 23.1 % (37.0-47.0); IMM GRAN# 0.03 X1000 (0.0-0.04); IMM GRAN% 3.4 % (0.0-0.5); LYMPH# 0.22 X1000 (1.2-3.4); LYMPH% 24.7 % (20.5-51.1); MCH 32.4 PG (27-31); MCHC 34.6 g/dL (33-37); MCV 93.5 FL (81-99); MONO# 0.04 X1000 (0.11-0.59); MONO% 4.5 % (1.7-9.3); MPV 12.6 FL (7.4-10.4); NEUT# 0.59 X1000 (1.4-6.5); NEUT% 66.3 % (42.2-75.2); RBC 2.47 XMIL (4.2-5.4); RDW 21.3 % (11.5-14.5); WBC 0.89 X1000 (4.8-10.8)
[2019-02-22 07:40] LABS: PLT 37 X1000 (130-400)
[2019-02-22] MEDS ORDERED: POTASSIUM PHOSPHATE 40 MMOL in NS 250 ML IV ONE (07:47)
[2019-02-22 07:49] LABS: BANDS 10 % (0-1); LYMPHS 35 % (21-51); MONO 5 % (1-9); SEGS 45 % (42-75)
[2019-02-22 07:54] LABS: O2HB 85.1 % (95.0-99.0)
[2019-02-22 07:55] LABS: METHB 13.4 % (0.0-1.5)
[2019-02-22] MEDS: SYNTHROID PO SCH (08:15)
[2019-02-22] MEDS ORDERED: TAGAMET PO SCH (09:00)
[2019-02-22] MEDS ORDERED: VANCOMYCIN 1,800 MG in NS 500 ML IV SCH (10:00)
[2019-02-22] MEDS: ZOVIRAX PO SCH ×2 (10:02→21:39)
[2019-02-22] MEDS: PRILOSEC PO SCH (10:02)
[2019-02-22] MEDS: NON-FORMULARY MED PO SCH ×2 (10:10→21:40)
[2019-02-22 11:27] LABS: ALLEN TEST YES; BLOOD TYPE ARTERIAL; HCO3-(ACT) 24.8 mmoll (20.0-26.0); O2(CT) 11.5 mL/dL (15.0-23.0); PCO2(98.6) 33 mmHg (35-45); PO2(98.6) 165 mmHg (60-100); SAMPLE BLOOD; THB 9.1 g/dL (11.5-17.4); pH(98.6) 7.46 (7.35-7.45)
[2019-02-22 11:29] LABS: MODALITY CANNULA
[2019-02-22 11:31] LABS: METHB 8.8 % (0.0-1.5)
[2019-02-22 11:32] LABS: O2HB 86.6 % (95.0-99.0)
--- NOTE | 2019-02-22 14:34 | PROGRESS NOTE ---
DATE: 02/22/2019 SUBJECTIVE: The patient is resting comfortably in bed. She states that her shortness of breath has improved. OBJECTIVE: Vital Signs: Temperature 97.4 degrees, blood pressure 144/66, heart rate 75, respirations 16, O2 saturations 94% on 4 L nasal cannula. Intake and output: Intake 880. Output 200. General: This is a chronically ill-appearing elderly female, lying in bed in no acute distress. Heart: S1, S2 normal. Regular rate and rhythm. Lungs: Equal air entry bilaterally. No crackles. No rales. Abdomen: Positive bowel sounds. Soft, nontender, nondistended. Extremities: No edema, no cyanosis. Neurologic: The patient is alert and oriented x4. DIAGNOSTIC STUDIES: White blood cell count 0.8, hemoglobin 8, hematocrit 23 platelets 37,000. Sodium 140, potassium 3.3, chloride 109, CO2 of 23, BUN 8, creatinine 0.6, glucose 158. Chest x-ray shows mild interval worsening. ASSESSMENT AND PLAN: 1. Acute hypoxemic respiratory failure. Improved. The patient is now on nasal cannula at 4 L. Continue with bronchodilator therapy and supplemental oxygen. We will also add an incentive spirometry. 2. Methemoglobinemia. Improved. Continue with the current treatment regimen as directed by Dr. El. 3. Seizure disorder. Continue on Keppra. 4. Urinary tract infection secondary to Enterococcus. Continue on Zosyn as directed by Dr. Xiong. 5. Pancytopenia. Continue with neutropenic precautions and transfuse p.r.n. as directed by the oncologist. 6. Glioblastoma status post chemoradiation. Management as per the oncologists. 7. Hypokalemia. We will replace the patient's potassium. 8. Severe protein calorie malnutrition. We will add Ensure with each meal. cc: Glenis Hill MD [facility]
--- NOTE | 2019-02-22 17:04 | INFECTIOUS DISEASE PROGRESS NO ---
DATE: 02/22/2019 PRESENT ILLNESS: The patient has neutropenic fever. 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 MEDICATIONS: The patient is receiving Zosyn as a single agent. This is the first day of treatment with Zosyn. PHYSICAL EXAMINATION: Vital Signs: Temperature is 97.4 degrees, pulse 75, respirations 16, blood pressure 144/66. General: This is a ill-appearing, obese, elderly female. She is in no acute distress. Head/eyes/ears/nose/throat: She can hear my spoken words and see near objects. She does not have any white coating on her tongue. Patient has a left-sided ptosis. The patient has decreased hearing. Neck: No pain with moving her head. Lungs: Clear to auscultation. Abdomen: Soft and nontender. Neurologic: The patient is alert. She can move her extremities. As mentioned above, she does have left-sided ptosis. LAB AND RADIOLOGY: CBC today shows a white count of 0.89, hemoglobin of 8 and a platelet count of 37,000. Absolute neutrophil count is 590. Blood gases show a pH of 7.46, a PO2 of 165 and a pCO2 of 33. The creatinine is 0.6. GFR is greater than 60. Bilirubin is 2. IgG is 440, IgA is 126. Urine cultures mixed, blood cultures negative. Chest x-ray shows pulmonary edema and a small amount of atelectasis in the left base. ASSESSMENT AND PLAN: I am going to continue with Zosyn as a single agent for the patient's urinary tract infection and possible colitis. Also, I have ordered immunoglobulin 20 g today and 20 g tomorrow because of her low IgG level. I have called Dr. Chiara Rodríguez's nurse practitioner. Dr. Rodríguez is treating the patient for glioblastoma. I discussed with Dr. Rodríguez's nurse practitioner that I would suggest repeating the IgG level 6-8 weeks from now and if it is low again, then I think the patient would be a candidate to get monthly IVIG. The nurse practitioner said she will take care of doing that and also inform Dr. Rodríguez. COMORBIDITY: Unfortunately, she has a glioblastoma. cc: Keshawn Xiong MD
[2019-02-22] MEDS ORDERED: LASIX IV ONE (19:07)
--- NOTE | 2019-02-22 21:38 | PULMONOLOGY PROGRESS NOTE ---
DATE: 02/22/2019 SUBJECTIVE: The patient is awake, alert, and conversant. She reports her shortness of breath has markedly diminished, and she feels significantly better. OBJECTIVE: Vital Signs: The patient has been afebrile over the last 24 hours. Blood pressure 142/55, heart rate 81, respiratory rate 17, oxygen saturation 92% on nasal cannula of 4 L. HEENT: Pupils are equal and reactive. Oropharynx appears clear. Neck: Supple. Chest: Reveals good air entry bilaterally without wheezing or rhonchi. Cardiac exam: S1, S2. Abdomen: Soft. Extremities: Without edema. LABORATORIES: Arterial blood gas at 11:15 this morning reveals a pH of 7.46, pCO2 of 33, pO2 of 165 with an oxyhemoglobin level of 87 and a methemoglobin level, which has decreased to 8.8. IgG level is reduced at 440, white blood count 0.89, hemoglobin level 8.0, platelet count 37,000. Chest x-ray reveals mild atelectasis at the base, mild pulmonary edema. IMPRESSION: An 83-year-old with: 1. Methemoglobinemia. 2. Pulmonary edema. 3. Mild heart failure likely diastolic in nature from hypoxemia. 4. Immunoglobulin deficiency. 5. Neutropenia. 6. Thrombocytopenia. RECOMMENDATIONS: 1. Continue to avoid Dapsone/nitrofurantoin. 2. Single dose of Lasix for mild pulmonary edema. 3. Agree with immunoglobulin replacement. 4. Continue to wean oxygen as tolerated. cc: Thom El MD
[2019-02-22] MEDS: ACCUPRIL PO SCH (21:39)
[2019-02-22] MEDS: KEPPRA PO SCH (21:39)
[2019-02-22] MEDS: GAMUNEX-C 10% IV SCH (22:28)
[2019-02-23] MEDS: VITAMIN C IV SCH ×3 (00:35→12:49)
[2019-02-23] MEDS: NS IV SCH ×3 (00:35→12:49)
[2019-02-23] MEDS: ZOSYN 3.375 GM in NS 50 ML IV SCH ×4 (01:15→20:20)
[2019-02-23] MEDS: DUONEB (A & A) INH SCH ×6 (03:55→23:05)
[2019-02-23] MEDS: SYNTHROID PO SCH ×2 (06:47→08:58)
[2019-02-23 07:03] LABS: EOS# 0.04 X1000 (0.0-0.7); HEMATOCRIT 22.7 % (37.0-47.0); HEMOGLOBIN 7.6 g/dL (12.0-16.0); IMM GRAN# 0.05 X1000 (0.0-0.04); IMM GRAN% 6.3 % (0.0-0.5); LYMPH# 0.51 X1000 (1.2-3.4); LYMPH% 63.8 % (20.5-51.1); MCH 31.9 PG (27-31); MCHC 33.5 g/dL (33-37); MCV 95.4 FL (81-99); MONO# 0.02 X1000 (0.11-0.59); MONO% 2.5 % (1.7-9.3); MPV 11.5 FL (7.4-10.4); NEUT% 22.4 % (42.2-75.2); RBC 2.38 XMIL (4.2-5.4); RDW 21.8 % (11.5-14.5)
[2019-02-23 07:04] LABS: NEUT# 0.18 X1000 (1.4-6.5); PLT 23 X1000 (130-400)
[2019-02-23 07:10] LABS: AGAP 11; ALB/GLOB RATIO 1.2; ALBUMIN 2.8 g/dL (3.5-5.0); ALKALINE PHOSPHATASE 74 U/L (32-104); BUN 15 mg/dL (8-22); CALCIUM 8.1 mg/dL (8.8-10.2); CHLORIDE 104 mmol/L (98-107); COSMO 279; CREATININE 0.8 mg/dL (0.5-0.9); ESTIMATED GFR > 60; GLUCOSE 112 mg/dL (70-104); GOT 29 U/L (10-30); GPT 29 U/L (10-36); MAGNESIUM 1.8 mg/dL (1.5-2.7); PHOSPHORUS 3.2 mg/dL (2.7-4.5); POTASSIUM 3.2 mmol/L (3.5-5.1); SODIUM 139 mmol/L (136-145); TCO2 24 mmol/L (25-35); TOTAL BILIRUBIN 1.75 mg/dL (0.20-1.00); TOTAL PROTEIN 5.2 g/dL (6.3-8.3)
--- NOTE | 2019-02-23 07:28 | Diag Imaging Result Doc PS360 ---
EXAM: CHEST-PORTABLE INDICATION: abnormal exam TECHNIQUE: One view COMPARISON: 02/22/2019 FINDINGS: There is a small linear density at the periphery of the right lower lung zone likely representing trace atelectasis. Pulmonary venous congestion and mild edema appears to have improved slightly. No new consolidation is identified. Cardiac silhouette is stable. IMPRESSION: Interval slight improvement of pulmonary venous congestion and interstitial edema. Electronically signed by Ronald Arango 02/23/2019 7:26 AM
[2019-02-23] MEDS: NON-FORMULARY MED PO SCH ×2 (09:08→20:21)
[2019-02-23] MEDS: PRILOSEC PO SCH (09:09)
[2019-02-23] MEDS: ZOVIRAX PO SCH ×2 (09:09→20:21)
[2019-02-23] MEDS: CALCIUM GLUCONATE 2 GM in NS 100 ML IV ONE ×2 (09:13→09:37)
[2019-02-23] MEDS: GAMUNEX-C 10% IV SCH (10:02)
[2019-02-23] MEDS ORDERED: SENOKOT PO PRN (13:04)
--- NOTE | 2019-02-23 13:55 | INFECTIOUS DISEASE PROGRESS NO ---
DATE: 02/23/2019 PRESENT ILLNESS: The patient had neutropenic fever, but she has not had fever since Zosyn was started. The patient does have an Enterococcus urinary tract infection and possible colitis as seen on CT scan. The patient also has an immunoglobulin deficiency. MEDICATIONS: The patient is on day 1 of treatment with Zosyn. PHYSICAL EXAMINATION: Vital Signs: Temperature is 98 degrees, pulse , blood pressure 127/52. General: This is an ill-appearing elderly female. She is in no acute distress. Head, eyes, ears, nose, and throat: She can hear my spoken words and see near objects. She does not have any white coating on her tongue. She does have a left-sided ptosis. Neck: No pain when she moves her neck. Lungs: Clear to auscultation. Cardiovascular: Heart rate is regular. Abdomen: Soft and nontender. Neurologic: The patient is alert. She can move her extremities. She does have a left-sided ptosis. Integument: No rash noted. DIAGNOSTIC STUDIES: CBC today shows a white count of 800, hemoglobin 7.6, and platelet count 23,000. Creatinine is 0.8, GFR is greater than 60. Liver function studies are normal. Blood cultures are negative. Urine culture is mixed. Chest x-ray shows improvement in the patient's pulmonary venous congestion. ASSESSMENT AND PLAN: 1. The patient is neutropenic. She is not having any fever since the Zosyn was started. 2. The patient does have an Enterococcus urinary tract infection, which should be treated well by the Zosyn. 3. The patient is receiving immunoglobulin infusion for the patient's immunoglobulin deficiency. I plan to continue with Zosyn until the white blood cell count recovers more. COMORBIDITY: She has a glioblastoma. cc: Keshawn Xiong MD
--- NOTE | 2019-02-23 16:37 | PROGRESS NOTE ---
DATE: 02/23/2019 SUBJECTIVE: Patient resting in bed. Not in any obvious distress. OBJECTIVE: Vital signs: Temperature 98.7 degrees, pulse is 88, respirations 22, blood pressure 121/56, O2 saturation 94%. HEENT: Atraumatic, normocephalic. Cardiovascular System: S1, S2. Respiratory system has evidence of good air entry bilaterally. Abdomen is soft, nontender. No masses felt. Extremities: No evidence of edema. Central nervous system: No obvious focal deficits noted. LABORATORY DATA: WBC 8.080, hematocrit 22.7, platelet count 223,000. Sodium 132 potassium 3.2, chloride 104, bicarbonate 24, BUN 15, creatinine 0.8. ASSESSMENT AND PLAN: 1. Acute respiratory failure. Continue supplemental oxygen as well as bronchodilator treatment. 2. Methemoglobinemia. Improved. Continue patient on supplemental oxygen. Follow up on methemoglobin level. 3. Seizure disorder. Continue antiepileptic agent as well as maintain patient on seizure precaution. 4. Urinary tract infection secondary to Enterococcus. Antibiotics as recommended by Infectious Disease. 5. Pancytopenia. Neutropenic precautions as well as transfuse blood products as needed. 6. Glioblastoma status post chemoradiation. Oncology following. 7. Hypokalemia. Replete potassium level. Check magnesium level. 8. Deep vein thrombosis prophylaxis. 9. Gastrointestinal prophylaxis. Proton pump inhibitor. DISPOSITION: The patient will probably discharge with Home Health. Timing of discharge will be dependent on the clinical response to treatment she is currently receiving. cc: Héctor Adorno MD
[2019-02-23] MEDS ORDERED: CHLORASEPTIC SPRAY MT PRN (18:00)
[2019-02-23] MEDS: KEPPRA PO SCH (20:20)
[2019-02-23] MEDS: ACCUPRIL PO SCH (20:21)
--- NOTE | 2019-02-23 21:07 | PULMONOLOGY PROGRESS NOTE ---
DATE: 02/23/2019 SUBJECTIVE: The patient reports she has had a good day. She is without specific complaints. OBJECTIVE: Vital Signs: The patient has been afebrile for the last 24 hours. Blood pressure 120/49, heart rate 96, respiratory rate 23, oxygen saturation 95% on 5 L per nasal cannula. HEENT: Pupils are equal and reactive. Oropharynx appears clear. Neck: Supple. Chest: Faint crackles in the lung bases. Cardiac: S1, S2. Abdomen: Soft with good bowel sounds. Extremities: Without edema. LABORATORIES: Sodium 139, potassium 3.2, chloride 104, bicarbonate 24, anion gap 11, BUN 15, creatinine 0.8, total bilirubin has decreased to 1.75. White blood count 0.8, hemoglobin 7.6, platelet count 23,000. Chest x-ray reveals trace atelectasis with mild decrease in pulmonary edema. IMPRESSION: An 83-year-old with: 1. Methemoglobinemia, which is resolving. 2. Pulmonary edema. 3. Mild heart failure, which is resolving. 4. 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 5. Neutropenia. 6. Thrombocytopenia. 7. Hypoxemic respiratory failure. RECOMMENDATIONS: 1. Continue oxygen for hypoxemic respiratory failure. Please add hypoxemic respiratory failure to the problem list above. 2. Maintain a balance between intake and output. 3. Continue immunoglobulin management and antibiotics per Infectious Disease. cc: Thom El MD
[2019-02-24] MEDS: ZOSYN 3.375 GM in NS 50 ML IV SCH ×4 (03:00→21:03)
[2019-02-24] MEDS: DUONEB (A & A) INH SCH ×6 (03:05→23:25)
[2019-02-24 07:03] LABS: AGAP 6; BUN 13 mg/dL (8-22); CALCIUM 7.9 mg/dL (8.8-10.2); CHLORIDE 102 mmol/L (98-107); COSMO 269; CREATININE 0.6 mg/dL (0.5-0.9); ESTIMATED GFR > 60; GLUCOSE 117 mg/dL (70-104); POTASSIUM 3.5 mmol/L (3.5-5.1); SODIUM 134 mmol/L (136-145); TCO2 26 mmol/L (25-35)
[2019-02-24] MEDS: SYNTHROID PO SCH ×2 (07:33→13:44)
[2019-02-24] MEDS: PRILOSEC PO SCH (09:00)
[2019-02-24] MEDS: NON-FORMULARY MED PO SCH ×2 (09:00→21:03)
[2019-02-24] MEDS: ZOVIRAX PO SCH ×2 (09:00→21:04)
[2019-02-24 11:57] LABS: HEMATOCRIT 20.9 % (37.0-47.0); HEMOGLOBIN 6.9 g/dL (12.0-16.0); MCH 33.3 PG (27-31); MPV 12.5 FL (7.4-10.4); PLT 14 X1000 (130-400); RBC 2.07 XMIL (4.2-5.4); RDW 22.4 % (11.5-14.5); WBC 0.52 X1000 (4.8-10.8)
[2019-02-24 12:28] LABS: ANISOCYTOSIS 2+; HYPOCHROM 1+; LYMPHS 70 % (21-51); POIKILOCYTOSIS 1+; SEGS 20 % (42-75)
--- NOTE | 2019-02-24 12:54 | PROGRESS NOTE ---
DATE: 02/24/2019 SUBJECTIVE: Patient is resting in bed. Not in any obvious distress. OBJECTIVE: Vital Signs: Temperature is 98 degrees, pulse 104, respiratory rate is 20, blood pressure 138/49, oxygen saturation 93%. HEENT: Patient is atraumatic, normocephalic. Cardiovascular System: S1, S2. Respiratory System: Has evidence of good air entry bilaterally. Abdomen: Soft, nontender. No masses felt. Extremities: No evidence of edema. Central Nervous System: No obvious focal deficits noted. Labs: WBCs 0.52, hematocrit is 28.9 . Sodium is 134, potassium 3.5, chloride is 102, bicarb 26, BUN is 13, creatinine 0.6. ASSESSMENT AND PLAN: 1. Seizure disorder. Continue antiepileptic drugs. Maintain patient on seizure precautions. 2. Methemoglobinemia, improved. Continue supplemental oxygen. 3. Urinary tract infection secondary to enterococcus. Antibiotics as recommended by infectious disease. 4. Pancytopenia. Neutropenic precautions as well as transfuse blood products as needed. 5. Glioblastoma, status post chemoradiation. Oncology following. 6. Hypokalemia, improved. 7. Deep vein thrombosis prophylaxis. 8. Gastrointestinal prophylaxis. Proton pump inhibitor. cc: Héctor Adorno MD [facility]
[2019-02-24] MEDS: GRANIX SUBQ SCH (14:40)
--- NOTE | 2019-02-24 18:51 | INFECTIOUS DISEASE PROGRESS NO ---
DATE: 02/24/2019 PRESENT ILLNESS: The patient had neutropenic fever. She remains neutropenic, but she does not have fever since Zosyn was started. The patient has an immunoglobulin deficiency. MEDICATIONS: This is day 2 of treatment with Zosyn. PHYSICAL EXAMINATION: Vital Signs: Temperature is 98 degrees, pulse 104, respirations 20, blood pressure 138/49. General: This is an ill-appearing elderly female. She said she just does not feel good, but she is not in any acute distress. Head, Eyes, Ears, Nose, Throat: She can hear my spoken words and see near objects. She does not have any white patches in her mouth. Neck: There is no pain when she turns her head. Cardiovascular: Heart rate is regular. Abdomen: Soft and nontender. Neurologic: The patient is alert. She ambulates with assistance. She has a left- sided ptosis. Integument: No rash noted. LAB AND X-RAY: There is no new radiographic study. Today, the CBC showed a white count of 520, hemoglobin 6.9, and platelet count 14,000. The patient's creatinine is 0.6. GFR is greater than 60. Yesterday's chest x-ray showed improvement in the patient's pulmonary venous congestion and interstitial edema. ASSESSMENT AND PLAN: The patient has neutropenic fever. The fever has cleared since she has been on Zosyn. Unfortunately, her blood counts are not improving. My plan is to continue with Zosyn. The patient does have an immunoglobulin deficiency, and she has received IVIG for it. COMORBIDITIES: She has a glioblastoma. cc: Keshawn Xiong MD
[2019-02-24] MEDS ORDERED: AYR NASAL SPRAY NAS PRN (20:30)
[2019-02-24] MEDS: KEPPRA PO SCH (21:04)
[2019-02-24] MEDS: ACCUPRIL PO SCH (21:04)
--- NOTE | 2019-02-24 21:59 | PULMONOLOGY PROGRESS NOTE ---
DATE: 02/24/2019 SUBJECTIVE: The patient is awake, alert, and conversant. She reports she is very fatigued. OBJECTIVE: Vital Signs: The patient has been afebrile for the last 24 hours. Blood pressure 131/56, heart rate 94, respiratory rate 16, oxygen saturation 94% on nasal cannula. HEENT: Pupils are equal and reactive. Oropharynx appears clear. Neck: Supple. Chest: Reveals faint crackles in the lung bases. Cardiac exam: S1, S2. Abdomen: Soft without hepatosplenomegaly. Extremities: Without edema. LABORATORIES: G6PD screen was normal. IMPRESSION: An 83-year-old with: 1. Methemoglobinemia, which has resolved. 2. Pulmonary edema. 3. Hypoxemic respiratory failure. 4. Neutropenia with fever. 5. Pancytopenia. RECOMMENDATIONS: 1. Continue oxygen for hypoxemic respiratory failure. 2. Transfuse packed red blood cells tomorrow if her hemoglobin remains less than 7. 3. Continue filgrastim. 4. Continue antibiotics per Infectious Disease. 5. Avoid medications, which might trigger methemoglobinemia. cc: Thom El MD
[2019-02-25] MEDS: ZOSYN 3.375 GM in NS 50 ML IV SCH ×4 (02:45→22:35)
[2019-02-25] MEDS: DUONEB (A & A) INH SCH ×6 (03:30→23:35)
[2019-02-25 05:51] LABS: ALLEN TEST YES; BE 5.9 mmoll (-3.0-3.0); BLOOD TYPE ARTERIAL; HCO3-(ACT) 29.5 mmoll (20.0-26.0); O2(CT) 7.8 mL/dL (15.0-23.0); PCO2(98.6) 38 mmHg (35-45); PO2(98.6) 68 mmHg (60-100); SAMPLE BLOOD; SAO2 94.3 % (95.0-100.0); THB 6.1 g/dL (11.5-17.4)
[2019-02-25 05:56] LABS: METHB 4.5 % (0.0-1.5); MODALITY CANNULA
[2019-02-25] MEDS: SYNTHROID PO SCH ×2 (06:36→09:28)
[2019-02-25 07:07] LABS: EOS# 0.01 X1000 (0.0-0.7); EOS% 2.6 % (0.0-10.0); HEMATOCRIT 18.4 % (37.0-47.0); LYMPH# 0.34 X1000 (1.2-3.4); LYMPH% 89.5 % (20.5-51.1); MCH 32.1 PG (27-31); MCHC 32.6 g/dL (33-37); MCV 98.4 FL (81-99); MPV 10.9 FL (7.4-10.4); NEUT% 7.9 % (42.2-75.2); PLT 73 X1000 (130-400); RBC 1.87 XMIL (4.2-5.4); RDW 21.6 % (11.5-14.5); WBC 0.38 X1000 (4.8-10.8)
[2019-02-25 07:21] LABS: AGAP 7; BUN 9 mg/dL (8-22); CALCIUM 8.3 mg/dL (8.8-10.2); CHLORIDE 106 mmol/L (98-107); COSMO 280; CREATININE 0.5 mg/dL (0.5-0.9); ESTIMATED GFR > 60; GLUCOSE 129 mg/dL (70-104); POTASSIUM 3.6 mmol/L (3.5-5.1); SODIUM 140 mmol/L (136-145); TCO2 27 mmol/L (25-35)
[2019-02-25 07:22] LABS: NEUT# 0.03 X1000 (1.4-6.5)
--- NOTE | 2019-02-25 09:05 | HEMO/ONC CONSULTATION ---
DATE: 02/22/2019 CONSULTATION REQUESTED BY: Hospitalist Service. REASON FOR CONSULTATION: Glioblastoma, patient known. HISTORY OF PRESENT ILLNESS: Ms. Arango is an 83-year-old, female, who is known to us as we are currently treating her for GBM, who came to the [facility] complaining of cough, increased shortness of breath and a low-grade fever. She also had generalized weakness. The patient was diagnosed with a urinary tract infection prior to her admission and was placed on Macrobid. Upon evaluation, she was found to be neutropenic and has subsequently been placed in the hospital for further evaluation and treatment. PAST MEDICAL HISTORY: 1. Glioblastoma, status post surgical resection July 2018 and December 2018, and currently on Temodar with concurrent radiation. 2. GERD. 3. Hypertension. 4. Hypothyroidism. PAST SURGICAL HISTORY: 1. Status post glioblastoma resection as per above. 2. Breast reduction. 3. Cataract. 4. Hysterectomy. SOCIAL HISTORY: Patient denies any alcohol, tobacco or illicit drug use. She has a daughter that is helping to take care of her. ALLERGIES: Sulfa which has caused a mild rash in the past. REVIEW OF SYSTEMS: As per HPI. All else is negative or noncontributory. Twelve point review of systems completed. PHYSICAL EXAMINATION: Vital Signs: Temperature 97.8 degrees, heart rate 94, respirations 18, blood pressure 133/57, O2 saturation 94% on Venturi mask at 5 L. General: This is a female lying in a hospital bed. She is in no acute distress currently. She is getting a breathing treatment. Her daughter is at bedside. Head: Head normocephalic, atraumatic. Eyes: Pupils equal, round, reactive. Ears, nose, throat, neck: Mouth: Mucosa is normal. Gross auditory acuity is intact. Cardiovascular: S1, S2 heard. No murmurs, gallops, rubs appreciated. Respiratory: Coarse breath sounds with rales and rhonchi noted bilaterally anteriorly. Gastrointestinal: Abdomen is soft with positive bowel sounds. Musculoskeletal: No bony abnormalities noted. Extremities: Some trace bilateral extremity edema. Neurologic: Patient is alert and oriented. LABS AND STUDIES: White blood cells 0.89, hemoglobin 8.0, hematocrit 23.1, platelet count 37. Absolute neutrophil count is. 0.59. ABG methemoglobin is 8.8. Sodium 140, potassium 3.3, chloride 109, CO2 23. BUN 8, creatinine 0.6, glucose 158. Chest x-ray shows mildly prominent heart with mild pulmonary edema. ASSESSMENT AND PLAN: 1. Glioblastoma multiforme. Patient is currently on Temodar and concurrent radiation. Both treatments will be put on hold given her acute illness. Will monitor closely and discuss resuming medications once she has recovered. 2. Neutropenic fever. Continue reverse isolation. Continue neutropenic precautions. Also, continue daily complete blood counts and follow closely. She is currently on broad-spectrum intravenous antibiotics. Follow cultures. Infectious Disease is on board as well. 3. Methemoglobinemia. Per Dr. El, the patient started to have questions about dapsone, and the need for the patient to have that medication on board. Tried to answer those questions today. Per Dr. El, seems like the issue is the combination of Macrobid and dapsone. She was on dapsone for Pneumocystis carinii prophylaxis while on Temodar and radiation. So, to resume treatment, she will need something for prophylaxis. 4. Acute respiratory failure per Dr. El. She is on a non-rebreather mask. We want to thank you for consulting us on Ms. Arango while she is here at [facility]. We will continue to follow along and adjust our treatment plan per hospital course. Dictated by ENRIQUE Morley for Gadiel Yang MD cc: Gadiel Yang MD
[2019-02-25] MEDS: PRILOSEC PO SCH (09:26)
[2019-02-25] MEDS: NON-FORMULARY MED PO SCH ×2 (09:26→22:29)
[2019-02-25] MEDS: ZOVIRAX PO SCH ×2 (09:27→22:29)
[2019-02-25] MEDS: ZOFRAN IV PRN (10:46)
--- NOTE | 2019-02-25 11:14 | Diag Imaging Result Doc PS360 ---
EXAM: CHEST-1 VIEW 02/25/2019 HISTORY: resp. failure TECHNIQUE: AP portable upright at 1058 COMMENT: There has been some improvement in the linear opacities over the right lower laterally. There is increased opacity over the left hemidiaphragm compared to 02/23/2019, otherwise are has been no significant change. IMPRESSION: Worsened atelectasis left lower lobe. Improved atelectasis right lower lobe. Electronically signed by Ayush Lindo 02/25/2019 11:11 AM
[2019-02-25] MEDS ORDERED: NS 500 ML ONE (12:09)
--- NOTE | 2019-02-25 12:57 | INFECTIOUS DISEASE PROGRESS NO ---
DATE: 02/25/2019 PRESENT ILLNESS: The patient remains neutropenic, but she has not had any fever in the past 2 days. The patient also has an immunoglobulin deficiency. MEDICATIONS: The patient has been on Zosyn now for 3 days. PHYSICAL EXAMINATION: Vital Signs: Temperature is 98 degrees, pulse 101, respirations 15, blood pressure 135/52. General: This is an ill-appearing elderly female. She is in no acute distress, but she does not feel good. Head, Eyes, Ears, Nose, and Throat: She can hear my spoken words and see near objects. She does not have any white patches in her mouth. Neck: There is no pain when she turns her head. Lungs: Clear to auscultation. Cardiovascular: Heart rate is regular. Abdomen: Soft and nontender. Neurologic: The patient is alert. She can move her extremities. There is no tremor. She does have a left ptosis. Integument: No rash noted. DIAGNOSTIC STUDIES: Chest x-ray shows bibasilar atelectasis. Creatinine 0.5 GFR is greater than 60. Blood gases show a pH of 7.5, a PO2 of 68, and a pCO2 of 38. CBC shows a white count of 380, hemoglobin 6, and platelet count 73,000. ASSESSMENT AND PLAN: 1. Patient has neutropenia. Her fever is cleared. I plan to continue Zosyn until the patient's neutrophil count is over 1000. 2. The patient also has an immunoglobulin deficiency, and she has received IVIG for it. COMORBIDITIES: She has a glioblastoma. cc: Keshawn Xiong MD
[2019-02-25] MEDS: GRANIX SUBQ SCH (13:32)
--- NOTE | 2019-02-25 13:33 | PROGRESS NOTE ---
DATE: 02/25/2019 SUBJECTIVE: Patient resting comfortably in bed. OBJECTIVE: Vital signs: Temperature 97.7 degrees, pulse 91, respiratory 16, blood pressure 141/61 oxygen 92%. HEENT: Atraumatic, normocephalic. Cardiovascular: S1, S2. Respiratory: Has evidence of good air entry bilaterally. Abdomen: Soft. Nontender. No masses felt. Extremities: No evidence of edema. Central nervous system: No obvious focal deficit noted. LABORATORY DATA: WBC 0.3, hematocrit is 18.4 with a platelet count of 73,000. Methemoglobin level is 4.5, previously as high as 13.4 on 03/03/2019. Chemistry: Sodium 140, potassium 3.6, chloride is 106, bicarb 27, BUN 9, creatinine 0.5. ASSESSMENT AND PLAN: 1. Seizure disorder. Continue antiepileptic drugs. Maintain patient on seizure precaution. 2. Methemoglobinemia. Improved. Continue patient on supplemental oxygen. 3. Pancytopenia and neutropenic precautions and then transfuse blood products as needed. Note the patient has been started on Filgrastim. Hematology Oncology team following. 4. Glioblastoma status post chemo and radiation. Oncology following. 5. Hypokalemia. Improved. 6. Urinary tract infection secondary to enterococcus. Continue antibiotics as recommended by Infectious Disease. 7. Deep vein thrombosis prophylaxis. 8. Gastrointestinal prophylaxis. PPI. cc: Héctor Adorno MD
[2019-02-25] MEDS: TESSALON PO PRN (15:46)
--- NOTE | 2019-02-25 15:50 | Diag Imaging Result Doc PS360 ---
EXAM: CT ABDOMEN/PELVIS W/WO CONTRAS INDICATION: abdominal pain-left lower quadrant TECHNIQUE: This exam was performed using automated exposure control, adjustment of mA or kV according to patient size, and/or use of iterative reconstruction technique. COMPARISON: 02/20/2019 FINDINGS: There are small bilateral pleural effusions and bibasilar atelectasis that have increased during the interval. The liver, gallbladder, spleen, pancreas, and adrenal glands are unremarkable. There are a few small peripelvic renal cysts on the left that are stable. The kidneys are unremarkable, otherwise. The urinary bladder is unremarkable. There has been a prior hysterectomy. The questionable mild wall thickening involving the left colon is again identified. More than likely, this is largely due to nondistention of the colon. I suppose a component of very mild colitis is still possible. There is trace nonspecific free fluid in the pelvis but there is less than the previous study. There is mild body wall anasarca that has developed during the interval. IMPRESSION: 1.Questionable minimal left colonic wall thickening again noted that more than likely is due mainly to nondistention of the colon. 2.Trace nonspecific free fluid layering in the pelvis that has decreased in volume during the interval. 3.Interval increase in small pleural effusions and bibasilar atelectasis. 4.Development of mild body wall anasarca. 5.Otherwise, the abdomen and pelvis are essentially stable. Electronically signed by Ronald Arango 02/25/2019 3:48 PM
[2019-02-25] MEDS ORDERED: LASIX IV ONE (17:12)
--- NOTE | 2019-02-25 20:42 | PULMONOLOGY PROGRESS NOTE ---
DATE: 02/25/2019 SUBJECTIVE: The patient is awake and alert. She has had cough with associated left lower quadrant abdominal pain. She has some shortness of breath, which has improved following transfusion of packed red blood cells. OBJECTIVE: Vital Signs: The patient has been afebrile for the last 24 hours. Blood pressure 115/60, heart rate 82, respiratory rate 18, oxygen saturation on Venturi mask. HEENT: Pupils are equal and reactive. Oropharynx is clear. Neck: Supple. Chest: Reveals faint crackles in the lung bases. Cardiac: S1, S2. Abdomen: Soft, with positive bowel sounds. She has mild tenderness to palpation of the abdominal wall in the left lower quadrant. Extremities: Reveal trace edema. LABORATORIES: White blood count 0.38, hemoglobin 6.0, platelet count 73,000, neutrophil count 300. Arterial blood gas on 4 L per nasal cannula reveals a pH of 7.50, pCO2 of 38, pO2 of 68, with a methemoglobin which is decreased to 4.5. Sodium 140, potassium 3.6, chloride 100, bicarbonate 27, BUN 9, creatinine 0.5. Chest x-ray I reveals mild increased atelectasis left base. CT scan of the abdomen and pelvis reveals bibasilar atelectasis with small effusions, body wall edema, small amount of ascites, small amount of possible left colonic wall thickening. IMPRESSION: An 83-year-old with: 1. Methemoglobinemia which has essentially resolved. 2. Pulmonary edema. 3. Pancytopenia from chemotherapy with neutropenia, anemia, thrombocytopenia. 4. Acute hypoxemic respiratory failure. 5. Small pleural effusions. RECOMMENDATIONS: 1. Transfuse 1 unit of packed red blood cells today. 2. Continue oxygen for hypoxemic respiratory failure. 3. Continue Filgrastim. 4. Continue antibiotics per Infectious Disease. 5. Overall prognosis is guarded. cc: Thom El MD
[2019-02-25] MEDS: ACCUPRIL PO SCH (22:30)
[2019-02-25] MEDS: KEPPRA PO SCH (22:34)
[2019-02-26] MEDS: DUONEB (A & A) INH SCH ×6 (03:40→23:34)
[2019-02-26] MEDS: ZOSYN 3.375 GM in NS 50 ML IV SCH ×3 (05:06→20:49)
[2019-02-26 07:25] LABS: EOS# 0.01 X1000 (0.0-0.7); EOS% 2.5 % (0.0-10.0); HEMATOCRIT 21.4 % (37.0-47.0); HEMOGLOBIN 7.1 g/dL (12.0-16.0); LYMPH# 0.36 X1000 (1.2-3.4); MCH 31.8 PG (27-31); MCHC 33.2 g/dL (33-37); MPV 10.6 FL (7.4-10.4); NEUT% 7.5 % (42.2-75.2); PLT 42 X1000 (130-400); RBC 2.23 XMIL (4.2-5.4); RDW 19.5 % (11.5-14.5)
[2019-02-26 07:27] LABS: NEUT# 0.03 X1000 (1.4-6.5)
[2019-02-26] MEDS: PRILOSEC PO SCH (08:49)
[2019-02-26] MEDS: SYNTHROID PO SCH (08:49)
[2019-02-26] MEDS: ZOVIRAX PO SCH ×2 (08:50→20:49)
[2019-02-26] MEDS: GRANIX SUBQ SCH (09:00)
[2019-02-26] MEDS: NON-FORMULARY MED PO SCH ×2 (09:01→20:51)
--- NOTE | 2019-02-26 11:24 | PROGRESS NOTE ---
DATE: 02/26/2019 SUBJECTIVE: The patient is resting in bed. Her daughter is present in the room. OBJECTIVE: Vital signs: Temperature 97.8 degrees, pulse 102, respiratory rate 32, blood pressure 142/55, oxygen saturation 92%. HEENT: She is atraumatic, normocephalic. Cardiovascular: S1, S2. Respiratory: No rales or rhonchi noted. Abdomen: Soft, nontender. No masses felt. Extremities: No evidence of significant edema. Central nervous system: No obvious focal deficits noted. LABORATORY DATA: WBC is 0.40, hematocrit 21.4 with a platelet count of 42,000. ASSESSMENT AND PLAN: 1. Seizure disorder. Continue antiepileptic drugs as well as seizure precaution. 2. Pancytopenia. Continue neutropenic precautions as well as transfusion of blood products as needed. The patient has been started on filgrastim. Hematology/Oncology is managing. 3. Methhemoglobinemia. Continue oxygen supplementation. Pulmonary team managing. 4. Glioblastoma status post chemo with radiation, status post surgery. Oncology following. 5. Hypokalemia. Improved. 6. Deep vein thrombosis prophylaxis. 7. Gastrointestinal prophylaxis. Proton pump inhibitor. 8. Disposition: The patient's daughter wants the patient to be transferred to a hospital under the care of another oncologist. I did call [facility] to discuss with this oncologist. They will communicate with him about family wishes to have this patient transferred over. Apparently, Dr Donovan (the Oncologist being requested), had seen patient in the past. cc: Héctor Adorno MD [facility]
--- NOTE | 2019-02-26 13:12 | Diag Imaging Result Doc PS360 ---
EXAM: CHEST-1 VIEW 02/26/2019 HISTORY: cough TECHNIQUE: AP portable at 1109 COMMENT: There is blunting of the left costophrenic angle which was not present on 02/25/2019. Otherwise the lungs are generally better expanded than they were. There is some apparent atelectasis in the left lower lobe. IMPRESSION: Left lower lobe atelectasis versus pneumonia with pleural effusion. Electronically signed by Ayush Lindo 02/26/2019 1:10 PM
--- NOTE | 2019-02-26 13:27 | INFECTIOUS DISEASE PROGRESS NO ---
DATE: 02/26/2019 PRESENT ILLNESS: Ms. Arango has a pancytopenia and an immunoglobulin deficiency. She has not had any fevers on this admission. There is also a new oral candidiasis today. MEDICATIONS: She is receiving Zosyn 3.375 gram IV every 6 hours. She has received one dose of IVIG on this admission. PHYSICAL EXAMINATION: Vital Signs: Temperature is 98.1 degrees, pulse rate 93, respiratory rate 20, blood pressure 135/60, O2 saturation 97% on room air. General: This is a chronically ill- appearing, elderly female. She is lying in bed, currently in no acute distress. HEENT: Atraumatic, normocephalic. Oral mucous membranes are pink with some white patches noted. Neck: Supple. Trachea is midline. Respiratory: Lung sounds are clear to auscultation. She does have a fairly frequent cough. Cardiovascular: Heart rate and rhythm are regular. Normal sinus rhythm on the monitor. Abdomen: Soft, round and nontender. Bowel sounds are active. Extremities: There are petechiae noted to her bilateral lower extremities. Neurologic: She is awake, alert, oriented, and able to move around in the bed without difficulty. There is a left- sided ptosis. No tremor. LABORATORY AND X-RAY: Today her white count is 0.4 hemoglobin 7.1 platelet count 42,000. Absolute neutrophil count is 0.03. No creatinine available for today but it has been normal. Blood cultures were drawn this morning and are pending. Chest x-ray today shows atelectasis versus pneumonia to the left lower lobe. ASSESSMENT AND PLAN: Ms. Arango has a pancytopenia. The plan is to continue her Zosyn until the neutrophil count is greater than 1000. She has a possible pneumonia as seen on today's x-ray, and the patient has a cough. We will add ceftaroline 600mg IV every 12 hours. We will also add nystatin swish and swallow for her oral candidiasis. At this point the plan is to try to get her to [facility]. These plans have been discussed with and recommended by Dr. Xiong. COMORBIDITIES: Include that she is elderly with a glioblastoma. Dictated by ERIKA Peterson for Keshawn Xiong MD cc: Keshawn Xiong MD [facility]
[2019-02-26] MEDS: MYCOSTATIN SUSP PO SCH ×3 (13:29→20:49)
[2019-02-26] MEDS: TEFLARO 600 MG in NS 250 ML IV SCH (16:27)
[2019-02-26] MEDS ORDERED: NS 500 ML ONE (17:13)
[2019-02-26] MEDS: TESSALON PO PRN (17:43)
[2019-02-26] MEDS: ACCUPRIL PO SCH (20:49)
[2019-02-26] MEDS: KEPPRA PO SCH (20:49)
[2019-02-26] MEDS ORDERED: PATIENT'S OWN MED OPH SCH (21:00)
[2019-02-27] MEDS: ZOSYN 3.375 GM in NS 50 ML IV SCH ×3 (01:33→14:15)
[2019-02-27] MEDS: TEFLARO 600 MG in NS 250 ML IV SCH ×2 (02:24→14:48)
[2019-02-27] MEDS: DUONEB (A & A) INH SCH ×4 (03:50→15:42)
[2019-02-27 04:17] LABS: ALLEN TEST YES; BLOOD TYPE ARTERIAL; HCO3-(ACT) 28.8 mmoll (20.0-26.0); METHB 2.5 % (0.0-1.5); O2(CT) 10.8 mL/dL (15.0-23.0); O2HB 93.6 % (95.0-99.0); PCO2(98.6) 40 mmHg (35-45); PO2(98.6) 82 mmHg (60-100); SAMPLE BLOOD; SAO2 97.1 % (95.0-100.0); THB 8.1 g/dL (11.5-17.4); pH(98.6) 7.47 (7.35-7.45)
[2019-02-27 04:19] LABS: MODALITY VENTIMASK
[2019-02-27] MEDS: ZOFRAN IV PRN (05:43)
[2019-02-27 07:26] LABS: EOS# 0.01 X1000 (0.0-0.7); EOS% 3.1 % (0.0-10.0); HEMATOCRIT 25.2 % (37.0-47.0); HEMOGLOBIN 8.6 g/dL (12.0-16.0); LYMPH% 93.8 % (20.5-51.1); MCH 32.5 PG (27-31); MCHC 34.1 g/dL (33-37); MCV 95.1 FL (81-99); MONO# 0.01 X1000 (0.11-0.59); MONO% 3.1 % (1.7-9.3); MPV 10.6 FL (7.4-10.4); RBC 2.65 XMIL (4.2-5.4); RDW 19.6 % (11.5-14.5); WBC 0.32 X1000 (4.8-10.8)
[2019-02-27 07:29] LABS: PLT 28 X1000 (130-400)
--- NOTE | 2019-02-27 07:51 | Diag Imaging Result Doc PS360 ---
EXAM: CHEST-1 VIEW 02/27/2019 HISTORY: SOB TECHNIQUE: AP portable at 0730 COMMENT: Compared to 02/26/2019 the inspiration is less optimal and there is more opacification of both lower lobes particularly the left lower lobe. IMPRESSION: Worsened bibasilar atelectasis and/or pneumonia. Electronically signed by Ayush Lindo 02/27/2019 7:49 AM
[2019-02-27] MEDS: SYNTHROID PO SCH (08:30)
[2019-02-27] MEDS: PRILOSEC PO SCH (08:31)
[2019-02-27] MEDS: ZOVIRAX PO SCH (08:32)
[2019-02-27] MEDS: NON-FORMULARY MED PO SCH (08:32)
[2019-02-27] MEDS: MYCOSTATIN SUSP PO SCH ×3 (08:33→17:04)
[2019-02-27] MEDS: GRANIX SUBQ SCH (09:38)
[2019-02-27 15:34] VITALS: BP 142/75
--- NOTE | 2019-02-27 17:27 | PROGRESS NOTE ---
DATE: 02/27/2019 SUBJECTIVE: This morning Ms. Arango refers to be feeling remarkably down. She feels weak intermittently. She has some nosebleeds, which according to the family members is because she has a dry nose. OBJECTIVE: Vital signs: Blood pressure is 142/75, pulse is 98, respirations 20, temperature 98.9. The patient was saturating about 98%. General: Ms. Arango is an 83-year-old elderly female. She is in bed. Does not seems to be in any cardiopulmonary distress. HEENT: Mucosa is pink and moist. Anicteric. Acyanotic. Neck: Supple. Chest: Good air entry bilaterally. No crepitations. No rhonchi. Cardiovascular: Regular rate and rhythm. Abdomen: Soft. Extremities: No pedal edema. HARNESS RIGGER: Patient is awake, alert, and oriented. LABORATORY DATA: WBCs 0.32, hemoglobin is 8.6, platelet count of 28. Neutrophil count is 0. Chemistry is reviewed and is unremarkable. Patient is currently on ceftaroline, vancomycin and Zosyn. ASSESSMENT: 1. Severe pancytopenia with extreme neutropenia which is refractory. Patient continues to be neutropenic. She is on IV antibiotics. Infectious Disease is on board. 2. Seizure disorder. The patient is on antiepileptic medication. 3. Methemoglobinemia, resolved. 4. Hypokalemia, improved. 5. History of glioblastoma multiforme status post chemotherapy and radiation. Oncology is on board. PLAN: In general, Ms. Arango continues to be remarkably neutropenic. She is still on antibiotics and on Neupogen. We have requested that Ms. Arango be transferred to [facility] for higher level of care. I have spoken to the transfer center, and I am waiting for bed availability. Once there is a bed available, we will get her there. For now will continue with the current management. I have explained the plan to the family members who were at the bedside in and to Ms. Arango, and they are all in agreement. cc: Abdi Nuno MD
--- NOTE | 2019-02-27 20:56 | DISCHARGE SUMMARY ---
ADMISSION DATE: 02/20/2019 DISCHARGE DATE: 02/27/2019 DATE OF DISCHARGE/TRANSFER: Is 02/27/2019. DISPOSITION: Is Heme-Onc rico at [facility]. CONSULTATION: ID was consulted, patient was seen by Dr. Xiong. Hematology/Oncology was consulted patient was seen by Dr. Rodríguez. Pulmonary was consulted. Patient was seen by Dr. El. INVASIVE PROCEDURES: None. IMAGING STUDIES OF SIGNIFICANT: A CT scan of the of the chest, abdomen and pelvic was done initially which showed small bilateral pleural effusions, possible mild left colitis, no abscess, no free fluid. A chest x-ray shows mild prominent heart with pulmonary edema. Echocardiogram showed ejection fraction of 60 to [address] scan of the abdomen and pelvic show questionable minimal left colonic wall thickening, interval increase in small pleural effusion and bibasilar atelectasis . ADMISSION DIAGNOSIS: 1. Neutropenic fever. 2. Urinary tract infection. 3. Pancytopenia. 4. Possible left colitis. DIAGNOSIS AT THE TIME OF DISCHARGE: 1. Severe pancytopenia with protracted neutropenia. 2. Neutropenic fever on presentation. 3. Seizure disorder. 4. Methemoglobinemia on presentation likely medication induced. 5. History of glioblastoma multiforme status post surgery, chemotherapy and radiation. 6. Generalized weakness. PRESENTING COMPLAINT: Fever, dehydration, weakness. HISTORY OF PRESENTING COMPLAINT: Ms Arango is 83-year-old female with a history of GBM, follows up with Dr. Rodríguez and Dr. Hortencia Zimmerman came to emergency department because of fever. The patient was evaluated was found to be extremely neutropenic and pancytopenic. Patient was admitted for further medical care. HOSPITAL COURSE: Ms Arango was admitted to the medical floor. Was started on broad-spectrum IV antibiotics, adequately hydrated, multiple subspecialties were consulted including Pulmonary Medicine, Infectious Disease and Heme-Onc and during the course of the hospital stay Ms. Arango got about 4 PRBC transfusion and 2 platelet transfusion. Her course was kind of wax and wane, after the above mentioned transfusions her numbers will improve but then subsequently will get worse. The patient was deemed to be high risk and was subsequently arranged to be transferred to [facility] for higher level of care. TIME SPENT: 36 minutes. cc: Abdi Nuno MD
[2019-02-28] MEDS ORDERED: SYNTHROID PO SCH (07:00)
== END 2019-02-27 17:55 | disposition short-term general hospital (02) | DRG 808 ==
LOC: ED 09:12 → EDIPHOLD 16:13 → SUATTDRO 16:13 → 4N 02-21 06:46
PROVIDERS: ATTEND Internal Medicine
CPT/HCPCS: 36430; 71010; 71045; 71260; 74177; 74178; 80048; 80053; 80076; 81001; 82150; 82784; 82805; 82955; 82960; 83605; 83690; 83735; 84100; 84145; 85025; 86850; 86900; 86901; 86920; 87040; 87088; 93306; 94640; 94760; 94761; 94799; 96361; 96365; 96367; 96368; 96372; 96375; 96376; 99285; 99291; A9270; J0610; J0692; J0712; J0744; J1441; J1442; J1446; J1447; J1561; J1940; J2405; J2543; J3370; J3480; J7030; J7040; J7050; J8540; P9016; P9035; Q9967; S0030